=== PATIENT | male | born 1995 | race Caucasian/White ===

== ENCOUNTER 2017-09-18 16:58 | Emergency (ER) | payer OTHER ==
[~2017-09-18] VITALS: Ht 182.9 cm; Wt 89.4 kg
--- NOTE | 2017-09-18 17:21 | PHYS DOC ---
Past History Past Medical History: No Pertinent History Past Surgical History: No Surgical History Smoking: Non-smoker Adult General Chief Complaint Chief Complaint: FEVER HPI HPI 21-year-old male patient state he has had sore throat for one week after exposure to his who diagnosed with strep throat 1 week ago. Patient complaining of increasing sore throat since last night with fever up to 101 and 2 episodes of vomiting and one episode of diarrhea with headache and nasal congestion and mild cough. Patient rated his pain 9/10 and states he took NyQuil before coming to ER. Patient denies neck pain, chest pain, shortness of breath, focal neuro deficit. Review of Systems Review of Systems Constitutional: Denies fever or chills [] Eyes: Denies change in visual acuity, redness, or eye pain [] HENT: Denies nasal congestion or sore throat [] Respiratory: Denies cough or shortness of breath [] Cardiovascular: No additional information not addressed in HPI [] GI: Denies abdominal pain,report nausea, vomiting, diarrhea [] : Denies dysuria or hematuria [] Musculoskeletal: Denies back pain or joint pain [] Integument: Denies rash or skin lesions [] Neurologic: Denies focal weakness or sensory changes , report headache[] Endocrine: Denies polyuria or polydipsia [] All other systems were reviewed and found to be within normal limits, except as documented in this note. Allergies Allergies Allergies Coded Allergies Type Severity Reaction Last Updated Verified No Known Allergies Allergy Unknown 09/18/17 Yes Physical Exam Physical Exam Constitutional: Well developed, well nourished, mild distress, non-toxic appearance, T-100.2. [] HENT: Normocephalic, atraumatic, bilateral external ears normal, oropharynx moist, tonsils enlarged without oral exudates, nose normal. [] Eyes: PERRLA, EOMI, conjunctiva normal, no discharge. [] Neck: Normal range of motion, no tenderness, supple, no stridor. [] Cardiovascular:Tachycardia, no murmur [] Lungs & Thorax: Bilateral breath sounds clear to auscultation [] Abdomen: Bowel sounds normal, soft, no tenderness, no masses, no pulsatile masses. [] Skin: Warm, dry, no erythema, no rash. [] Back: No tenderness, no CVA tenderness. [] Extremities: No tenderness, no cyanosis, no clubbing, ROM intact, no edema. [] Neurologic: Alert and oriented X 3, normal motor function, normal sensory function, no focal deficits noted. [] Psychologic: Affect normal, judgement normal, mood normal. [] EKG EKG [] Radiology/Procedures Radiology/Procedures [] Course & Med Decision Making Course & Med Decision Making Pertinent Labs reviewed. (See chart for details) Evaluation of patient in ER showed 21 year-old male patient with complaining of sore throat for one week and fever and nausea and diarrhea and headache since last night. Patient had positive strep test. Flu test is pending. Patient care transferred to at 1800 [] Dragon Disclaimer Dragon Disclaimer This electronic medical record was generated, in whole or in part, using a voice recognition dictation system. Departure Departure: Impression: Primary Impression: Strep pharyngitis Referrals: ANITHA VALDERRAMA DO (PCP) NAOMI ARANGO MD Sep 18, 2017 17:21
[2017-09-18] MEDS ORDERED: HYDROcodone/APAP 5/325MG 1 TAB TABLET PO ONE (17:30)
[2017-09-18 18:23] LABS: INFLUENZA A PATIENT NEGATIVE (NEGATIVE); INFLUENZA B PATIENT NEGATIVE (NEGATIVE)
[2017-09-18] MEDS ORDERED: AZIT250T PO (18:29)
[2017-09-18] MEDS ORDERED: HYDR-971 PO (18:29)
[2017-09-18 18:41] VITALS: BP 131/77
== END 2017-09-18 18:40 | disposition home or self-care (01) ==
LOC: ER 16:58
DX: J02.0 Streptococcal pharyngitis (principal); R19.7 Diarrhea, unspecified; R51 Headache; R11.10 Vomiting, unspecified
CPT/HCPCS: 87804; 87880; 99284

== ENCOUNTER 2018-01-05 13:36 | Emergency (ER) | payer OTHER ==
[~2018-01-05] VITALS: Ht 180.3 cm; Wt 88.5 kg
[~2018-01-05 13:36] MED LIST: AZIT250T PO; HYDR-971 PO
[2018-01-05 13:46] VITALS: BP 146/86
--- NOTE | 2018-01-05 13:54 | PHYS DOC ---
Past History Past Medical History: No Pertinent History Past Surgical History: No Surgical History Smoking: Non-smoker Alcohol Use: None Drug Use: None Adult General Chief Complaint Chief Complaint: LACERATION/AVULSION HPI HPI 22-year-old male patient states he lost his balance at 3 AM today and had a fall from stairs and hit back of his head with a laceration without loss of consciousness. Patient states his made him to come to the hospital for taking care of his laceration. Patient denies pain, focal neuro deficit, fever and chills. Patient is up-to-date with his tetanus immunization. Review of Systems Review of Systems Constitutional: Denies fever or chills [] Eyes: Denies change in visual acuity, redness, or eye pain [] HENT: Denies nasal congestion or sore throat [] Respiratory: Denies cough or shortness of breath [] Cardiovascular: No additional information not addressed in HPI [] GI: Denies abdominal pain, nausea, vomiting, bloody stools or diarrhea [] : Denies dysuria or hematuria [] Musculoskeletal: Denies back pain or joint pain [] Integument: Denies rash or skin lesions, reports laceration [] Neurologic: Denies headache, focal weakness or sensory changes [] Endocrine: Denies polyuria or polydipsia [] All other systems were reviewed and found to be within normal limits, except as documented in this note. Allergies Allergies Allergies Coded Allergies Type Severity Reaction Last Updated Verified No Known Allergies Allergy Unknown 09/18/17 Yes Physical Exam Physical Exam Constitutional: Well developed, well nourished, no acute distress, non-toxic appearance. [] HENT: Normocephalic, 3 centimeter horizontal laceration in the occipital area with mild edema, bilateral external ears normal, oropharynx moist, no oral exudates, small laceration on base of nose with mild edema without bone tenderness or deformity Eyes: PERRLA, EOMI, conjunctiva normal, no discharge. [] Neck: Normal range of motion, no tenderness, supple, no stridor. [] Cardiovascular:Heart rate regular rhythm, no murmur [] Lungs & Thorax: Bilateral breath sounds clear to auscultation [] Skin: Warm, dry, no erythema, no rash. [] Back: No tenderness, no CVA tenderness. [] Extremities: No tenderness, no cyanosis, no clubbing, ROM intact, no edema. [] Neurologic: Alert and oriented X 3, normal motor function, normal sensory function, no focal deficits noted. [] Psychologic: Affect normal, judgement normal, mood normal. [] EKG EKG [] Radiology/Procedures Radiology/Procedures [] Course & Med Decision Making Course & Med Decision Making discharge: I've spoken with the patient and/or caregivers. I've explained the patient's condition, diagnosis and treatment plan based on information available to me at this time. I've answered the patient's and/or caregivers questions and addressed any concerns. The patient and/or caregivers have a good understanding the patient's diagnosis, condition and treatment plan as can be expected at this point. Vital signs have been stabilized. The patient's condition is stable for discharge from the emergency department. The patient will pursue further outpatient evaluation with her primary care provider or other designated consulting physician as outlined in the discharge instructions. Patient and/or caregivers are agreeable to this plan of care and follow-up instructions have been explained in detail. The patient and/or caregivers have received these instructions in written format and expressed understanding of these discharge instructions. The patient and her caregivers are aware that if any significant change in condition or worsening of symptoms should prompt him to immediately return to this of the closest emergency department. If an emergent department is not readily available I would encourage him to call 911. Moody Disclaimer Moody Disclaimer This electronic medical record was generated, in whole or in part, using a voice recognition dictation system. Departure Departure: Impression: Primary Impression: Occipital scalp laceration Additional Impression: Facial laceration Disposition: HOME, SELF-CARE (At 1400) Condition: IMPROVED Referrals: ANITHA VALDERRAMA DO (PCP) Patient Instructions: Staple Wound Closure, [id number], Tissue Adhesive Wound Care Additional Instructions: Follow-up with your physician in 10 days for staple removal or return to ER for staple removal Laceration Repair Lac Repair Indication: [Occipital scalp laceration 3 cm] Procedure: The patient was placed in the appropriate position . The area was then [cleaned and debrided minimally]. The laceration was [repaired with 3 juan josé]. Total repaired wound length: [TOTAL REPAIR LENGTH]. Other Items: [OTHER ITEMS] The patient tolerated the procedure [TOLERATED]. Complications: [COMPLICATIONS]. 0.5 cm laceration of base of nose was repaired with Dermabond. Problem Qualifiers NAOMI ARANGO MD Jan 05, 2018 13:54
== END 2018-01-05 14:05 | disposition home or self-care (01) ==
LOC: ER 13:36
DX: S01.01XA Laceration without foreign body of scalp, initial encounter (principal); S01.21XA Laceration without foreign body of nose, initial encounter; W10.8XXA Fall (on) (from) other stairs and steps, initial encounter; Y93.89 Activity, other specified; Y99.8 Other external cause status; Y92.89 Other specified places as the place of occurrence of the external cause
CPT/HCPCS: 12002; 12011; 99283; 99285